=== PATIENT | female | born 1955 | race African-American/Black ===

== ENCOUNTER 2016-04-23 06:50 | Day surgery (SDC) | payer BC, OTHER ==
[2016-04-20 09:51] VITALS: BMI 30.8
[2016-04-23] MEDS ORDERED: PROPOFOL 20 ML ONE ×2 (08:11)
[2016-04-23] MEDS ORDERED: MIDAZOLAM HCL 2 MG/2 ML SINGLE DOSE VIAL ONE (08:11)
[2016-04-23] MEDS ORDERED: LIDOCAINE HCL 1%, 10 MG/ML (20ML VIAL) ONE (08:29)
[2016-04-23] MEDS ORDERED: LIDOCAINE HCL 1%, 10 MG/ML (50 mL VIAL) IJ ONE (08:50)
[2016-04-23 09:37] VITALS: PULSE 66; TEMP 97.8
[2016-04-23] MEDS ORDERED: oxyCODONE HCL 5 MG TABLET PO ONE (10:10)
[2016-04-23 10:11] VITALS: BP 126/70
[2016-04-23] MEDS ORDERED: KETOROLAC TROMETHAMINE 30 MG/1 ML VIAL IVPUSH ONE (12:15)
--- NOTE | 2016-04-24 16:11 | OP ---
DATE OF OPERATION: 04/23/2016 SURGEON: Sidney Roach MD MEDICAL EDUCATION SPECIALIST: ELSA Lopez PREOPERATIVE DIAGNOSIS: Right finger trigger finger/tenosynovitis. POSTOPERATIVE DIAGNOSIS: Right finger trigger finger/tenosynovitis. PROCEDURE: Excision of A1 rudi/trigger finger release right middle finger. FINDINGS: Thickened A1 rudi with impingement upon flexor tendons and anterior fraying. DESCRIPTION OF PROCEDURE: The patient was taken to the operating room where the right upper extremity was prepped and draped in sterile fashion. Tourniquet to the upper arm was inflated to 250 mmHg. A horizontal incision was made in the area of the A1 rudi. Tendon and rudi complex was identified and released initially with a scalpel then extended proximally and distally with blunt tenotomy scissors. Curved hemostat was placed around the flexor tendons and these were brought out of the wound. Finger was easily flexed and extended and minor fraying was debrided. Wound was irrigated with copious amounts of irrigation and closed with 4-0 nylon and single interrupted sutures. SIDNEY ROACH M.D. [id number]
== END 2016-04-23 10:20 | disposition home or self-care (01) ==
LOC: FASU 06:50
PROVIDERS: ATTEND Orthopaedic Surgery
PROC: 0LN70ZZ Release Right Hand Tendon, Open Approach (ICD-10-PCS; principal; 2016-04-23 08:51)
DX: M65.331 Trigger finger, right middle finger (principal)

== ENCOUNTER 2019-10-19 07:06 | Day surgery (SDC) | payer BC ==
[2019-10-15 17:25] VITALS: BMI 30.8
[2019-10-19] MEDS ORDERED: MIDAZOLAM HCL 2 MG/2 ML SINGLE DOSE VIAL ONE (07:48)
[2019-10-19] MEDS ORDERED: LIDOCAINE 1% P/F 10 MG/ML VIAL ONE (07:49)
[2019-10-19] MEDS ORDERED: ROPIVACAINE HCL 0.5% 30ML VIAL ONE (07:49)
[2019-10-19] MEDS ORDERED: ADENOSINE 6 MG/2 ML VIAL IVPUSH ONE (08:59)
[2019-10-19] MEDS ORDERED: PROPOFOL 20 ML ONE ×2 (08:59)
[2019-10-19] MEDS ORDERED: oxyCODONE HCL 5 MG TABLET PO PRN (09:10)
[2019-10-19] MEDS ORDERED: ONDANSETRON 4 MG/2 ML VIAL IVPUSH PRN (09:10)
[2019-10-19] MEDS ORDERED: LACTATED RINGERS SOLUTION 1,000 ML IV SCH (09:15)
[2019-10-19 12:06] VITALS: BP 126/80; PULSE 62; TEMP 98.1
--- NOTE | 2019-10-19 20:12 | OP ---
DATE OF OPERATION: 10/19/2019 LOCATION: [facility]. SURGEON: Sidney Roach MD. PHLEBOTOMIST MEDICAL LAB ASSISTANT: ELSA Lopez. PREOPERATIVE DIAGNOSIS: 1. Right shoulder rotator cuff tear. 2. Right shoulder adhesive capsulitis. 3. Right shoulder impingement syndrome. 4. Right shoulder acromioclavicular degenerative joint disease. 5. Right shoulder superior labrum anterior posterior with synovitis. POSTOPERATIVE DIAGNOSIS: 1. Right shoulder rotator cuff tear. 2. Right shoulder adhesive capsulitis. 3. Right shoulder impingement syndrome. 4. Right shoulder acromioclavicular degenerative joint disease. 5. Right shoulder superior labrum anterior posterior with synovitis. PROCEDURE: 1. Right shoulder arthroscopy, with arthroscopic rotator cuff repair, CPT code 37913. 2. Right shoulder arthroscopy with lysis and resection of adhesions, CPT code 88832. 3. Right shoulder arthroscopy with subacromial decompression, CPT code 73147. 4. Right shoulder arthroscopy with resection of clavicle, acromioclavicular joint, CPT code 12667. 5. Right shoulder arthroscopy with debridement, CPT code 41777. FINDINGS: 1. Full thickness supraspinatus rotator cuff tear 6 cm in length. 2. Partial biceps tear, 10%. 3. type I. 4. Central glenoid cartilage changes grade 2-4, 5 cm x 2 cm. 5. Posterior anterior labral fraying. 6. Type 3 acromion with large anterior spur. 7. Inferior spur distal clavicle to acromioclavicular degenerative joint disease and impingement upon the supraspinatus with associated damage. 8. Thickened scar tissue subacromial space. REPAIR TYPE: 2 mattress sutures were placed into the supraspinatus and secured to a bleeding bone bed using the Francis rotator cuff anchors. PROCEDURE: Informed consent was obtained. The patient was taken to the operating room where the upper extremity was prepped and draped in a sterile fashion. The shoulder was manipulated for a full range of motion. Posterior incision portal was made and directed to glenohumeral joint. Under direct visualization, an anterior incision and portal was made. Extensive synovitis, as well as chondral injuries throughout the glenohumeral joint were dbrided and removed. Any identified labral injuries, including superior labral tear, anterior and posterior, and anterior labrum torn portions were removed as well. Rotator cuff was visualized and noted to have full-thickness tear. The edges were debrided. Posterior incision portal was redirected to subacromial space where a lateral incision portal was made. Excessive and thickened scar tissue noted throughout the subacromial space, including bursal and scar tissue, were removed. The type 2 acromion was converted into a flattened type 1 using a yaritza for subacromial decompression. Distal inferior spur at the distal clavicle was also dbrided with the use of accessory portal in the AC joint. The edges of the rotator cuff were identified. Sutures were placed into the rotator cuff and secured using anchors throughout the greater tuberosity. Prior to securing, a bleeding bed was made using a small yaritza, creating a bleeding surface of the rotator cuff insertion. The shoulder was then drained. A single suture as placed on all portals and a sterile dressing was placed. The patient was transferred to the recovery room without complication. The PA listed above was present and assisted at surgery. Their presence was absolutely medically necessary for the completion of the procedure. They helped hold the arthroscopy, pass instruments (and implants when indicated) and the procedure could not have been completed without their assistance. SIDENY ROACH M.D. [id number]
--- NOTE | 2019-10-23 16:12 | PATH ---
Surgical Pathology Report Patient Name: EMBER STAFFORD Med. Rec. #: [id number] /Age/Gender: 1955 (Age: 63) / F Account: [id number] Location: [facility] AMBULATORY Taken: 10/19/2019 Received: 10/19/2019 Reported: 10/23/2019 Physicians: Sidney Chong M.D. Specimen(s) Received RIGHT SHOULDER SHAVINGS Clinical History Right shoulder rotator cuff tear Final Diagnosis RIGHT SHOULDER SHAVINGS: SYNOVIAL TISSUE WITH FOCAL REACTIVE CHANGE. SEPARATE SKELETAL MUSCLE AND BONE FRAGMENTS WITH NO SIGNIFICANT PATHOLOGIC CHANGE. Electronically Signed Quirino Richards M.D. Gross Description Received in formalin, labeled "right shoulder shavings," is a 4.8 x 4.8 x 0.4 cm. aggregate of raza-yellow soft tissue fragments. A compliance representative dealer portion is submitted in [one] cassette. /10/19/2019 [facility]/10/19/2019
== END 2019-10-19 12:00 | disposition home or self-care (01) ==
LOC: FASU 07:06
PROVIDERS: ATTEND Orthopaedic Surgery
PROC: 0RNJ4ZZ Release Right Shoulder Joint, Percutaneous Endoscopic Approach (ICD-10-PCS; 2019-10-19)
PROC: 0RBJ4ZZ Excision of Right Shoulder Joint, Percutaneous Endoscopic Approach (ICD-10-PCS; 2019-10-19)
PROC: 0PB94ZZ Excision of Right Clavicle, Percutaneous Endoscopic Approach (ICD-10-PCS; 2019-10-19)
PROC: 0LQ14ZZ Repair Right Shoulder Tendon, Percutaneous Endoscopic Approach (ICD-10-PCS; principal; 2019-10-19 09:41)
DX: M75.121 Complete rotator cuff tear or rupture of right shoulder, not specified as traumatic (principal); M75.01 Adhesive capsulitis of right shoulder; M75.41 Impingement syndrome of right shoulder; M19.011 Primary osteoarthritis, right shoulder; M24.111 Other articular cartilage disorders, right shoulder; M65.811 Other synovitis and tenosynovitis, right shoulder
CPT/HCPCS: 88304-TC; 94760

== ENCOUNTER 2022-10-06 05:35 | Day surgery (SDC) | payer OTHER, BC ==
[2022-10-05 14:31] VITALS: BMI 25.1
[2022-10-06 10:21] VITALS: TEMP 97.4
[2022-10-06 10:57] VITALS: BP 118/64; PULSE 68; RESP 19
== END 2022-10-06 11:05 | disposition home or self-care (01) ==
LOC: JASU-ENDO 05:35
PROVIDERS: ATTEND Student in an Organized Health Care Education/Training Program
PROC: 0DBN8ZX Excision of Sigmoid Colon, Via Natural or Artificial Opening Endoscopic, Diagnostic (ICD-10-PCS; 2022-10-06)
PROC: 0DBM8ZX Excision of Descending Colon, Via Natural or Artificial Opening Endoscopic, Diagnostic (ICD-10-PCS; 2022-10-06)
PROC: 0DBH8ZX Excision of Cecum, Via Natural or Artificial Opening Endoscopic, Diagnostic (ICD-10-PCS; 2022-10-06)
PROC: 0DBK8ZX Excision of Ascending Colon, Via Natural or Artificial Opening Endoscopic, Diagnostic (ICD-10-PCS; principal; 2022-10-06 10:00)
DX: Z12.11 Encounter for screening for malignant neoplasm of colon (principal); K63.5 Polyp of colon; K64.8 Other hemorrhoids
CPT/HCPCS: 88305-TC